=== PATIENT | male | born 1965 | race Caucasian/White ===

== ENCOUNTER 2019-11-03 09:38 | Emergency (ER) | payer OTHER ==
[~2019-11-03] VITALS: Ht 167.6 cm; Wt 75.7 kg
[2019-11-03 09:43] VITALS: BP 162/99
[2019-11-03] MEDS ORDERED: KETOROLAC 30 MG/ML VIAL IM ONE (10:25)
[2019-11-03 11:11] VITALS: BP 162/99
== END 2019-11-03 11:12 | disposition home or self-care (01) ==
LOC: MED 09:38
DX: M76.52 Patellar tendinitis, left knee (principal); Z90.49 Acquired absence of other specified parts of digestive tract
CPT/HCPCS: 29505; 73562; 96372; 99283; J1885; 81025